=== PATIENT | male | born 1965 | race Hispanic/Latino ===

== ENCOUNTER 2024-04-26 21:07 | Emergency (ER) | payer SELFPAY ==
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
[2024-04-26] MEDS ORDERED: DERMABOND SKIN ADHESIVE TOP ONE (22:26)
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
[2024-04-27 04:43] VITALS: TEMP 97.6
[2024-04-27 04:44] VITALS: BP 115/76; O2SAT 96
== END 2024-04-27 01:10 | disposition home or self-care (01) ==
LOC: ER 21:07
DX: Z04.71 Encounter for examination and observation following alleged adult physical abuse (principal); S01.81XA Laceration without foreign body of other part of head, initial encounter; S12.300A Unspecified displaced fracture of fourth cervical vertebra, initial encounter for closed fracture; Z72.0 Tobacco use
CPT/HCPCS: 70450; 70486; 72125; 76377